=== PATIENT | male | born 1985 | race African-American/Black ===

== ENCOUNTER 2016-12-09 14:13 | Emergency (ER) | payer SELFPAY ==
[2016-12-09 14:19] VITALS: BP 162/90; BMI 23.9
--- NOTE | 2016-12-09 15:52 | DR.GENAD ---
HPI - PCP Primary Care Physician: LEO - HPI Comment HPI Comment: HISTORY BELOW. - Complaint/Symptoms Chief Complaint Doctors Comments: ABSCESS RIGHT FACE TIMES FEW WEEKS. WORSE 3 DAYS AGO. NO FEVER. NO DRAINAGE. Chief Complaint:: RIGHT SIDE FACIAL ABCESS Self Treatment fo Chief Complaint: WARM COMPRESS - Nurses notes reviewed Nurses Notes Review: Yes - Source History Provided: Patient - Mode of Arrival Mode of Arrival: Ambulatory - Timing Onset of Chief Complaint: 11/11/16 Came on: Suddenly - Duration Duration: Constant Duration: Days - Severity Severity: Moderate PMH - PMH Past Medical History: No Past Surgical History: No Surgical History: Unknown - Family History History of Family Medical Conditions: No Family Medical History: Diabetes Mellitus, Hypertension - Social History Type of Tobacco Use: Cigarettes How many years tobacco product used: 10 Does any household member use tobacco: Yes Alcohol Use: Occasionally Do you use any recreational Drugs:: Yes (MARIJUNIA) Lives With: Significant Other Lives Where: Home - infectious screening In the last 2 months have you had wt loss of >10#?: NO Have you had fever, night sweats or hemotysis?: No Have you traveled outside the country in the last 6 months?: No Isolation: Standard ROS - Review of Systems Constitutional: No Symptoms Reported Eyes: No Symptoms Reported ENTM: No Symptoms Reported Respiratoy: No Symptoms Reported Cardiovascular: No Symptoms Reported Gastrointestinal/Abdominal: No Symptoms Reported Genitourinary: No Symptoms Reported Neurological: No Symptoms Reported Musculoskeletal: Other (ABSCESS SIZE GOLF BALL RIGHT FACE BELOW RIGHT EAR.) Integumentary: Lumps (ABSCESS RIGHT FACE.) Hematologic/Lymphatic: No Symptoms Reported Endocrine: No Symptoms Reported All Other Systems: Reviewed and Negative PE - Vital Signs Vitals: Temperature 98.7 F Pulse Rate 100 Respiratory Rate 20 Blood Pressure 162/90 O2 Sat by Pulse Oximetry 99 - General Limitations: No Limitations General Appearance: Alert - Head Head Exam: Other (ABSCESS SIZE GOLF BALL BELOW RIGHT EAR. FLUCTUANT.) - Eyes Eye exam: Normal Appearance - ENT ENT Exam: Normal External Ear Exam External Ear Exam: Normal External Inspection TM/Canal Exam: Bilateral Normal Nose Exam: Normal Nose Exam Mouth Exam: Normal Inspection Throat Exam: Normal Inspection - Neck Neck Exam: Trachea Midline - Chest Chest Inspection: Symmetric Chest Wall Rise - Respiratory Respiratory Exam: Normal Lung Sounds Bilat Respiratory Exam: Bilateral Clear to Auscultation - Cardiovascular Cardiovascular Exam: Regular Rate, Normal Rhythm, Normal Heart Sounds - Abdominal Exam Abdominal Exam: Normal Bowel Sounds, Soft. negative: Tenderness - Extremities Extremities Exam: Normal Inspection - Back Back Exam: Normal Inspection - Neurologic Neurological Exam: Alert, Oriented X3 - Psychiatric Psychiatric Exam: Normal Affect, Normal Mood - Skin Skin Exam: Erythema (ABSCESS RIGHT FACE.) [facility] - Additional Information Additional Information Obtained From: Family - Differential Diagnosis Differential Diagnosis: ABSCESS RIGHT FACE, CELLULITIS RIGHT FACE. Course - Treatment Treatment: SEE ORDERS.I&D DONE IN ED. - Education/Counseling Education/Counseling: Patient, Family, Education Educated On: Treatment, Diagnosis, Needs for Follow Up Procedures - Incision and Drainage Blade Size: 11 I & D Procedure: betadine prep, sterile dressing applied, gauze wick placed Progress: ABSCESS CLEAN AND NUMB WITH 1% LIDOCAINE. I&D DONE. 20CC PUS DRAINED. HAD SMELL TO IT. 1/4 INCH IODOFORM GAUZE INSERTED INTO WOUND. NO IMMEDIATE COMPLICATION NOTED. - Diagnosis Discharge Problem: Facial abscess, Cellulitis, face - Discharge Plan Disposition: 01 HOME, SELF-CARE Condition: Stable Prescriptions: Ibuprofen [MOTRIN TAB 600 MG *] 600 mg PO TID PRN #20 tab PRN Reason: Pain/Inflammation Sulfamethoxazole-Trimethoprim [BACTRIM DS TAB 800/160 MG *] 1 tab PO Q8H #30 tab - Follow ups/Referrals Follow ups/Referrals: NFD,None [Primary Care Provider] - 3 days - Instructions Instructions: Abscess, [id number], Cellulitis, Adult, [id number] Additional Instructions: RETURN TO ED IF WORSE.
== END 2016-12-09 16:14 | disposition home or self-care (01) ==
LOC: ER 14:26
PROC: 0W923ZZ Drainage of Face, Percutaneous Approach (ICD-10-PCS; principal; 2016-12-09)
DX: L02.01 Cutaneous abscess of face (principal); L03.211 Cellulitis of face
CPT/HCPCS: 10060; 87070; 87075; 87205; 99282

== ENCOUNTER 2017-07-03 07:33 | Emergency (ER) | payer SELFPAY ==
[2017-07-03 07:37] VITALS: BP 156/92; BMI 24.3
--- NOTE | 2017-07-03 08:13 | RAD ---
HISTORY: Right ankle pain and swelling after injury 3 days ago Study: AP oblique and lateral views of the right ankle Comparison: None Findings: No acute cortical disruption or dislocation can be identified. The ankle mortise remains well aligne d. There is soft tissue swelling laterally. The visualized portions of the talus and calcaneus are unremarkable. IMPRESSION: 1. Lateral soft tissue swelling, no evidence for fracture. Reported By:
[2017-07-03] MEDS ORDERED: TORADOL 60 MG VIAL IM ONE (08:35)
[2017-07-03] MEDS ORDERED: TORADOL 60 MG VIAL ONE (08:36)
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
== END 2017-07-03 08:52 | disposition home or self-care (01) ==
LOC: ER 07:47
DX: S93.411A Sprain of calcaneofibular ligament of right ankle, initial encounter (principal); Y33.XXXA Other specified events, undetermined intent, initial encounter; Y92.9 Unspecified place or not applicable
CPT/HCPCS: 73610; 99282; J1885